=== PATIENT | male | born 1980 | race Caucasian/White ===

== ENCOUNTER 2017-07-06 22:41 | Emergency (ER) | payer SELFPAY ==
[~2017-07-06] VITALS: Ht 182.9 cm; Wt 142.9 kg
[2017-07-06 22:41] VITALS: BP 148/100
[2017-07-06] MEDS ORDERED: MORPHINE SULFATE 10 MG/ML SYRINGE. IM ONE (23:30)
[2017-07-06] MEDS ORDERED: IPRATRPIUM/ALBUTEROL 0.5/2.5MG 3 ML NEBU. NEB ONE (23:30)
--- NOTE | 2017-07-06 23:42 | ED.ADGEN ---
Past History Past Medical History: COPD, Hypertension Past Surgical History: Other Alcohol Use: Occasionally Drug Use: None Adult General HPI HPI Patient is a 36 year old male who presents with rib pain. Patient was diagnosed one week earlier with a fracture to rib #9. This occurred after he coughed. 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 He is followed at [facility] for this condition. Tonight, he presents to the ER stating that he coughed at home and again felt a pop over the right rib cage. He has concerns that he fractured another rib or that the known fractured rib popped out of place. He does not have shortness of breath. He does continue to complain of pain along the right posterior lateral mid to lower rib cage. Pain is worse when he takes a deep breath and moves. The patient does have a chronic cough because he is a smoker. He does have known emphysema. He uses inhalers at home. His cough has not been worse lately compared to normal. He is already taking Bactrim and Keflex for treatment of other soft tissue infections in the legs. Review of Systems Review of Systems Constitutional: Denies fever or chills Eyes: Denies change in visual acuity HENT: Denies nasal congestion Respiratory: Denies shortness of breath Cardiovascular: No additional information not addressed in HPI GI: Denies abdominal pain Musculoskeletal: as documented above Integument: Denies rash or skin lesions Neurologic: Denies headache Endocrine: Denies polyuria or polydipsia All other systems were reviewed and found to be within normal limits, except as documented in this note. Current Medications Current Medications Current Medications Medications (Trade) Dose Ordered Sig/Brit Start Time Stop Time Status Last Admin Dose Admin Albuterol Sulfate (Ventolin) 2.5 mg 1X ONCE 07/07/17 00:15 07/07/17 00:23 DC 07/07/17 00:12 2.5 MG Albuterol/ Ipratropium (Duoneb) 3 ml 1X ONCE 07/06/17 23:30 07/07/17 00:03 DC 07/06/17 23:34 3 ML Azithromycin (Zithromax) 500 mg 1X ONCE 07/07/17 00:15 07/07/17 00:23 DC 07/07/17 00:12 500 MG Morphine Sulfate (Morphine 10mg Syringe) 10 mg 1X ONCE 07/06/17 23:30 07/07/17 00:03 DC 07/06/17 23:34 10 MG Allergies Allergies Allergies Coded Allergies Type Severity Reaction Last Updated Verified hydroxyzine Allergy Unknown 07/06/17 Yes meperidine Allergy Unknown 07/06/17 Yes Physical Exam Physical Exam Constitutional: Well developed, well nourished, no acute distress, non-toxic appearance HENT: Normocephalic, atraumatic, bilateral external ears normal, oropharynx moist, no oral exudates, nose normal Eyes: PERRLA, EOMI Neck: Normal range of motion, no tenderness, suppl Cardiovascular:Heart rate regular rhythm, no murmur Lungs & Thorax: Bilateral breath sounds clear to auscultation Skin: Warm, dry, no erythema, no rash Extremities: The bilateral lower extremities and some erythema. these are chronic and r/t the patient's known chronic vasculitis and associated treatments. Neurologic: Alert and oriented X 3 Psychologic: Affect normal, judgement normal, mood normal Current Patient Data Vital Signs Vital Signs Date Time Temp Pulse Resp B/P (MAP) Pulse Ox O2 Delivery O2 Flow Rate FiO2 07/06/17 23:52 103 95 Room Air 07/06/17 22:41 98.6 22 EKG EKG [] Radiology/Procedures Radiology/Procedures Fx of 9th right rib, distal aspect. Fx of 8 rib Course & Med Decision Making Course & Med Decision Making Pertinent Labs and Imaging studies reviewed. (See chart for details) Patient was seen and examined in the emergency department. He was primarily concerned about a rib fracture. He also had a very persistent cough during the ED course. He was given 2 albuterol nebulized treatments in the ER which did improve his symptoms. He was given a dose of morphine intramuscularly which did improve his pain and his cough. X-ray was completed and the patient does have a new fracture of the eighth rib. The old fracture the nitroglycerin was again visualized. Patient was given training on incentive spirometry. X-ray also was noted to have some increased interstitial markings. The patient had oxygen saturations in the low 90s and upper 80s during the ER course. He is taking Keflex and Bactrim for skin infections in the legs but these antibiotics would not cover atypical pulmonary infection which this patient is at high risk for given his treatment with prednisone and prior history of emphysema. In the ER, he was given the first dose of a Z-Chano. Patient will be discharged home with the additional 4 pills as a prescription. He is advised to use his Proventil inhaler every 2 hours while awake over the next 48 hours. 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 His pain was much improved prior to discharge. 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 He is advised to take one or 2 or 3 of these as needed for significant pain related to his rib fracture. He is accompanied by family this evening and he is not driving home. Final Impression Final Impression Rib fractures Dragthee Disclaimer Dragon Disclaimer This electronic medical record was generated, in whole or in part, using a voice recognition dictation system. GREGORIA WELLER DO Jul 06, 2017 23:42
--- NOTE | 2017-07-06 23:45 | RAD ---
PA CHEST AND RIGHT RIB SERIES Clinical Indication: Right rib pain, area of interest marked w/bb. Hx of fx to 9th rib last week. Pain after coughing fit tonight. Comparison: None. Findings: The cardiomediastinal silhouette is normal. There are interstitial and alveolar opacities throughout the lungs. No pleural effusion or pneumothorax is seen. There is acute minimally displaced and angulated fracture of the right lateral eighth rib. There is acute moderately displaced fracture of the right anterolateral ninth rib. IMPRESSION: 1. There are diffuse interstitial and alveolar opacities throughout the lungs. Considerations include pneumonia including atypical infections, pneumonitis, or pulmonary edema. 2. Acute fractures of the right eighth and ninth ribs. Electronically signed by: Devon Anderson MD (07/06/2017 11:42 PM) [facility]
[2017-07-07] MEDS ORDERED: ALBUTEROL SULFATE 2.5 MG/3 ML NEBU. NEB ONE (00:15)
[2017-07-07] MEDS ORDERED: AZITHROMYCIN 250 MG TABLET. PO ONE (00:15)
[2017-07-07] MEDS ORDERED: AZIT250T6 PO (00:27)
[2017-07-07] MEDS ORDERED: HYDROcodone/APAP 5/325MG 1 TAB TABLET PO ONE (00:45)
== END 2017-07-07 00:42 | disposition home or self-care (01) ==
LOC: ER 22:41
DX: S22.41XA Multiple fractures of ribs, right side, initial encounter for closed fracture (principal); J44.9 Chronic obstructive pulmonary disease, unspecified; I10 Essential (primary) hypertension; Z88.8 Allergy status to other drugs, medicaments and biological substances; X50.9XXA Other and unspecified overexertion or strenuous movements or postures, initial encounter; Y93.89 Activity, other specified; Y99.8 Other external cause status; Y92.89 Other specified places as the place of occurrence of the external cause
CPT/HCPCS: 71101; 94640; 96372; 99284; G0238; J0456; J2270; J7613; J7620

== ENCOUNTER 2017-09-14 18:32 | Emergency (ER) | payer SELFPAY ==
[~2017-09-14] VITALS: Ht 182.9 cm; Wt 145.1 kg
[~2017-09-14 18:32] MED LIST: AZIT250T6 PO
[2017-09-14 19:26] LABS: BASO % 0 % (0-3); EOS % 0 % (0-3); HEMATOCRIT 44.7 % (39.0-53.0); HEMOGLOBIN 14.9 g/dL (13.0-17.5); LYMPH # 1.4 x10^3/uL (1.0-4.8); LYMPH % 8 % (24-48); MEAN CORPUSCULAR HEMOGLOBIN 31 pg (25-35); MEAN CORPUSCULAR HGB CONC 33 g/dL (31-37); MEAN CORPUSCULAR VOLUME 92 fL (79-100); MONO # 0.4 x10^3/uL (0.0-1.1); MONO % 3 % (0-9); NEUT # 15.3 x10^3uL (1.8-7.7); NEUT % 89 % (31-73); PLATELET COUNT 368 x10^3/uL (140-400); RED BLOOD COUNT 4.86 x10^6/uL (4.30-5.70); RED CELL DISTRIBUTION WIDTH 16.1 % (11.5-14.5); WHITE BLOOD COUNT 17.1 x10^3/uL (4.0-11.0)
[2017-09-14] MEDS ORDERED: IV NORMAL SALINE 500ML 500 ML IV ONE (19:30)
[2017-09-14] MEDS ORDERED: IV NORMAL SALINE 1,000ML 1,000 ML IV ONE (19:30)
--- NOTE | 2017-09-14 19:35 | PHYS DOC ---
Past History Past Medical History: Other Past Surgical History: Other Alcohol Use: None Drug Use: Marijuana Adult General Chief Complaint Chief Complaint: CHEST PAIN HPI HPI 37-year-old male presents with chest pain that started 1 hour ago. Patient states that the pain is a fluttering kind of pain. It started shortly after smoking marijuana while the patient was sitting on the couch. Patient states he only smokes marijuana once in a while. He does not give a pain rating, just says it felt funny. The feeling has resolved at this time. Patient denies increased shortness of breath or diaphoresis. She has a history of vasculitis, emphysema, and pulmonary hypertension. He is on 2 L of oxygen at baseline. His oxygen requirement is the same at this time. He denies nausea, vomiting, diarrhea, constipation. Review of Systems Review of Systems Constitutional: Denies fever or chills [] Eyes: Denies change in visual acuity, redness, or eye pain [] HENT: Denies nasal congestion or sore throat [] Respiratory: Denies cough or shortness of breath [] Cardiovascular: No additional information not addressed in HPI [] GI: Denies abdominal pain, nausea, vomiting, bloody stools or diarrhea [] : Denies dysuria or hematuria [] Musculoskeletal: Denies back pain or joint pain [] Integument: Denies rash or skin lesions [] Neurologic: Denies headache, focal weakness or sensory changes [] Endocrine: Denies polyuria or polydipsia [] All other systems were reviewed and found to be within normal limits, except as documented in this note. Current Medications Current Medications Current Medications Medications (Trade) Dose Ordered Sig/Brit Start Time Stop Time Status Last Admin Dose Admin Sodium Chloride 1,000 ml @ 1,000 mls/hr 1X ONCE 09/14/17 19:30 09/14/17 20:29 Allergies Allergies Allergies Coded Allergies Type Severity Reaction Last Updated Verified hydroxyzine Allergy Unknown 07/06/17 Yes meperidine Allergy Unknown 07/06/17 Yes Physical Exam Physical Exam Constitutional: Well developed, obese, well nourished, no acute distress, non- toxic appearance. [] HENT: Normocephalic, atraumatic, bilateral external ears normal, oropharynx moist, no oral exudates, nose normal. [] Eyes: PERRLA, EOMI, conjunctiva normal, no discharge. [] Neck: Normal range of motion, no tenderness, supple, no stridor. [] Cardiovascular:Heart rate regular rhythm, no murmur [] Lungs & Thorax: Bilateral breath sounds clear to auscultation [] Abdomen: Bowel sounds normal, firm, no tenderness, no masses, no pulsatile masses. [] Skin: Warm, dry, no erythema, no rash. [] Back: No tenderness, no CVA tenderness. [] Extremities: No tenderness, no cyanosis, no clubbing, ROM intact, no edema. [] Neurologic: Alert and oriented X 3, normal motor function, normal sensory function, no focal deficits noted. [] Psychologic: Affect normal, judgement normal, mood normal. [] Current Patient Data Vital Signs Vital Signs Date Time Temp Pulse Resp B/P (MAP) Pulse Ox O2 Delivery O2 Flow Rate FiO2 09/14/17 18:35 116 22 93 Room Air Lab Results Laboratory Tests Test 09/14/17 18:50 White Blood Count 17.1 x10^3/uL (4.0-11.0) H Red Blood Count 4.86 x10^6/uL (4.30-5.70) Hemoglobin 14.9 g/dL (13.0-17.5) Hematocrit 44.7 % (39.0-53.0) Mean Corpuscular Volume 92 fL (79-100) Mean Corpuscular Hemoglobin 31 pg (25-35) Mean Corpuscular Hemoglobin Concent 33 g/dL (31-37) Red Cell Distribution Width 16.1 % (11.5-14.5) H Platelet Count 368 x10^3/uL (140-400) Neutrophils (%) (Auto) 89 % (31-73) H Lymphocytes (%) (Auto) 8 % (24-48) L Monocytes (%) (Auto) 3 % (0-9) Eosinophils (%) (Auto) 0 % (0-3) Basophils (%) (Auto) 0 % (0-3) Neutrophils # (Auto) 15.3 x10^3uL (1.8-7.7) H Lymphocytes # (Auto) 1.4 x10^3/uL (1.0-4.8) Monocytes # (Auto) 0.4 x10^3/uL (0.0-1.1) Eosinophils # (Auto) 0.0 x10^3/uL (0.0-0.7) Basophils # (Auto) 0.0 x10^3/uL (0.0-0.2) Platelet Estimate Pending EKG EKG Sinus tachycardia, rate 117, normal axis, no ST elevations or depressions.[] Radiology/Procedures Radiology/Procedures [] Impressions: CHEST PA LATERAL dated 09/14/2017 8:44 PM. Comparison: 07/06/2017 Clinical Indication: Chest pain, hx emphysema. Findings: PA and lateral views obtained. Heart and mediastinal contours are stable. Lungs are somewhat hyperinflated but otherwise clear. Prominent interstitial markings, unchanged. No pleural effusion or pneumothorax. Impression: Patchy bibasilar opacity, likely atelectasis, similar to prior study. Electronically signed by: Ton Knight MD (09/14/2017 10:35 PM) [facility] Course & Med Decision Making Course & Med Decision Making Pertinent Labs and Imaging studies reviewed. (See chart for details) Patient's labs are remarkable for an elevated white count of 17. The patient is on prednisone daily and this is likely the reason. His other labs are unremarkable. Troponin is negative. His EKG is unremarkable. The patient's EKG sinus tachycardia with a rate of 117. I will give him 500 of normal saline. I'm giving him fluids gently due to his history of fluid retention as the patient is on Lasix 80 mg twice a day. Patient's chest x-ray is negative for acute findings. The patient's heart rate has returned to normal with a rate of 85. I suspect his strange feeling was due to his marijuana use. Now that that is subsided, he is feeling completely normal. He would like to go home. He is stable for discharge at this time. [] Dragon Disclaimer Dragon Disclaimer This electronic medical record was generated, in whole or in part, using a voice recognition dictation system. Departure Departure: Referrals: NON,STAFF (PCP) ANIBAL SANDERS DO Sep 14, 2017 19:35
[2017-09-14 19:38] LABS: ALBUMIN 3.6 g/dL (3.4-5.0); ALBUMIN/GLOBULIN RATIO 0.9 (1.0-1.7); CALCIUM 9.5 mg/dL (8.5-10.1); CREATININE 1.2 mg/dL (0.7-1.3); GFR 68.1; POTASSIUM 4.5 mmol/L (3.5-5.1); TOTAL BILIRUBIN 0.4 mg/dL (0.2-1.0); TOTAL PROTEIN 7.7 g/dL (6.4-8.2)
[2017-09-14 20:04] LABS: % BANDS 1 % (0-9); % BASOS 1 % (0-3); % EOS 0 % (0-5); % LYMPHS 8 % (24-48); % MONOS 1 % (0-10); % SEGS 89 % (35-66); PLT ESTIMATE ADEQUATE (ADEQUATE)
[2017-09-14 20:05] LABS: TOXIC GRANULATION PRESENT
--- NOTE | 2017-09-14 22:39 | RAD ---
CHEST PA LATERAL dated 09/14/2017 8:44 PM. Comparison: 07/06/2017 Clinical Indication: Chest pain, hx emphysema. Findings: PA and lateral views obtained. Heart and mediastinal contours are stable. Lungs are somewhat hyperinflated but otherwise clear. Prominent interstitial markings, unchanged. No pleural effusion or pneumothorax. Impression: Patchy bibasilar opacity, likely atelectasis, similar to prior study. Electronically signed by: Ton Knight MD (09/14/2017 10:35 PM) [facility]
[2017-09-14 23:00] VITALS: BP 128/84
== END 2017-09-14 23:05 | disposition home or self-care (01) ==
LOC: ER 18:32
DX: R07.9 Chest pain, unspecified (principal); F12.10 Cannabis abuse, uncomplicated; D72.829 Elevated white blood cell count, unspecified; Z88.8 Allergy status to other drugs, medicaments and biological substances
CPT/HCPCS: 36415; 71046; 80053; 84484; 85007; 85025; 99285; J7040